=== PATIENT | male | born 1990 | race Caucasian/White ===

== ENCOUNTER 2016-10-06 10:42 | Emergency (ER) | payer OTHER ==
[~2016-10-06] VITALS: Ht 177.8 cm; Wt 102.3 kg
[~2016-10-06 10:42] MED LIST: AMOXICILLIN 50500 MG PO; MAGIC MOUTH PO; NO HOME MEDICATIONS; PREDNISONE20 MG PO; PRIL40 PO; ZOFRAN 4MG T4 MG/TAB PO
[2016-10-06 10:47] VITALS: TEMP 98.5
[2016-10-06 12:40] LABS: BASO # 0.1 (0.0-0.2); BASO % 0.7 % (0.0-2.0); EOS # 0.1 (0.0-0.7); EOS % 0.9 % (0-4.0); GRAN # 5.5 (1.4-6.5); GRAN % 71.7 % (42.2-75.2); HEMATOCRIT 43.8 % (42.0-52.0); HEMOGLOBIN 15.5 g/dl (13.5-18.0); LYMPH # 1.6 (1.2-3.4); LYMPH % 21.2 % (20.0-51.0); MEAN CELL VOLUME 84 fl (80.0-100.0); MEAN CORPUSCULAR HEMOGLOBIN 30 pg (27.0-31.0); MEAN CORPUSCULAR HGB CONC 35 g/dl (33.0-37.0); MEAN PLATELET VOLUME 11.2 fl (7.4-10.4); MONO # 0.4 (0.1-0.6); MONO % 4.6 % (1.7-9.3); PLATELET COUNT 224 K/mm3 (130-400); RED BLOOD COUNT 5.24 M/mm3 (4.20-5.60); REDCELL DISTRIBUTION WIDTH-CV 12.1 % (11.5-14.5); WHITE BLOOD COUNT 7.6 K/mm3 (4.8-10.8)
[2016-10-06] MEDS ORDERED: CEPHALEXIN500 M1 PO (13:07)
[2016-10-06 13:14] VITALS: PULSE 92
[2016-10-06 15:12] LABS: ERYTHROCYTE SEDIMENTATION RATE 6 mm/hr (0-15)
== END 2016-10-06 13:14 | disposition home or self-care (01) ==
LOC: COL.ER 10:42
PROVIDERS: Nurse Practitioner
DX: L03.116 Cellulitis of left lower limb (principal)

== ENCOUNTER 2017-02-19 12:23 | Inpatient (IN) | payer OTHER ==
[~2017-02-19] VITALS: Ht 180.3 cm; Wt 94.8 kg
[~2017-02-19 12:23] MED LIST changes: +CEPHALEXIN500 M1 PO
[2017-02-19 13:11] LABS: BASO # 0.1 (0.0-0.2); BASO % 0.6 % (0.0-2.0); EOS # 0.1 (0.0-0.7); EOS % 1.4 % (0-4.0); GRAN # 7.1 (1.4-6.5); GRAN % 81.7 % (42.2-75.2); HEMOGLOBIN 12.4 g/dl (13.5-18.0); LYMPH # 1.1 (1.2-3.4); LYMPH % 12.3 % (20.0-51.0); MEAN CELL VOLUME 81 fl (80.0-100.0); MEAN CORPUSCULAR HEMOGLOBIN 29 pg (27.0-31.0); MEAN CORPUSCULAR HGB CONC 36 g/dl (33.0-37.0); MEAN PLATELET VOLUME 11.4 fl (7.4-10.4); MONO # 0.3 (0.1-0.6); MONO % 3.7 % (1.7-9.3); PLATELET COUNT 173 K/mm3 (130-400); RED BLOOD COUNT 4.26 M/mm3 (4.20-5.60); REDCELL DISTRIBUTION WIDTH-CV 12.3 % (11.5-14.5); WHITE BLOOD COUNT 8.6 K/mm3 (4.8-10.8)
[2017-02-19 13:24] LABS: ADJUSTED CALCIUM 9.4 mg/dL (8.4-10.2); ALBUMIN 4.1 gm/dL (3.5-5.0); CALCIUM 9.5 mg/dL (8.4-10.2); HEMATOCRIT 34.3 % (42.0-52.0); POTASSIUM 3.8 mmol/L (3.4-5.0); TOTAL PROTEIN 7.2 gm/dL (6.4-8.2)
[2017-02-19 13:27] LABS: CREATININE, serum 5.71 mg/dL (0.66-1.25)
[2017-02-19 13:53] LABS: PH 5 (5-8); URINE APPEARANCE Hazy; URINE BACTERIA None Seen /hpf; URINE BILIRUBIN Negative (NEGATIVE); URINE BLOOD 3+ (NEGATIVE); URINE COLOR Yellow; URINE GLUCOSE Negative (NEGATIVE); URINE KETONE Negative (NEGATIVE); URINE UROBILINOGEN Negative (NEGATIVE)
[2017-02-19 16:31] VITALS: BP 201/112; PULSE 85; TEMP 98.4
[2017-02-19 19:25] VITALS: BP 155/89; PULSE 79; TEMP 98.3
[2017-02-19 19:31] LABS: URINE PROTEIN:CREAT RATIO 5.08 (0.00-0.14)
[2017-02-19 23:27] VITALS: BP 156/95; PULSE 81; TEMP 98.3
[2017-02-20 02:54] VITALS: BP 168/96; PULSE 73; TEMP 98.5
[2017-02-20 07:15] LABS: ALBUMIN 3.5 gm/dL (3.5-5.0); CALCIUM 8.9 mg/dL (8.4-10.2); POTASSIUM 3.6 mmol/L (3.4-5.0)
[2017-02-20 07:26] LABS: CREATININE, serum 5.29 mg/dL (0.66-1.25)
[2017-02-20 07:33] LABS: PHOSPHOROUS 4.8 mg/dL (2.5-4.5)
[2017-02-20 07:45] VITALS: BP 162/101; PULSE 75; TEMP 98
[2017-02-20 11:11] VITALS: BP 141/95; PULSE 74; TEMP 98.4
[2017-02-20 14:58] VITALS: BP 163/108; PULSE 65; TEMP 97.8
[2017-02-20 16:35] LABS: HEPATITIS B CORE AB,TOTAL Negative (()); HEPATITIS B SURFACE AB-QL Positive (())
[2017-02-20 20:41] VITALS: BP 153/95; PULSE 63; TEMP 98.2
[2017-02-21] VITALS (7 sets, daily range): BP systolic 143–169; BP diastolic 91–103; PULSE 58–69; TEMP 97.7–98.8
[2017-02-21 18:10] LABS: POTASSIUM 4.5 mmol/L (3.4-5.0)
[2017-02-21 18:18] LABS: CREATININE, serum 4.97 mg/dL (0.66-1.25)
[2017-02-22] VITALS (7 sets, daily range): BP systolic 132–188; BP diastolic 92–114; PULSE 58–71; TEMP 97.8–98.1
[2017-02-22 07:15] LABS: INR 0.9 (0.8-3.0); PROTHROMBIN TIME 9.8 SECONDS (9.7-12.8)
[2017-02-22 07:19] LABS: PARTIAL THROMBOPLASTIN TIME 29.2 SECONDS (26.0-37.0)
[2017-02-22 10:54] LABS: CALCIUM 8.9 mg/dL (8.4-10.2); POTASSIUM 3.8 mmol/L (3.4-5.0)
[2017-02-22 10:59] LABS: CREATININE, serum 4.95 mg/dL (0.66-1.25)
[2017-02-23] VITALS (17 sets, daily range): BP systolic 95–173; BP diastolic 47–115; PULSE 59–105; TEMP 97.8–98.7
[2017-02-23 07:41] LABS: CALCIUM 9.1 mg/dL (8.4-10.2); POTASSIUM 3.9 mmol/L (3.4-5.0)
[2017-02-23 07:47] LABS: CREATININE, serum 4.99 mg/dL (0.66-1.25)
[2017-02-23 22:08] LABS: HCV GENOTYPE Undetected (())
[2017-02-23 22:43] LABS: C-ANCA 9 U/mL (0-99); P-ANCA 15 U/mL (0-99)
[2017-02-24 03:43] VITALS: BP 95/43; PULSE 84; TEMP 97.9
[2017-02-24 07:46] VITALS: BP 118/60; PULSE 95; TEMP 98.7
[2017-02-24 07:49] LABS: POTASSIUM 4.9 mmol/L (3.4-5.0)
[2017-02-24 07:58] LABS: CREATININE, serum 5.89 mg/dL (0.66-1.25)
[2017-02-24] MEDS ORDERED: NICODERM C14 MG/PATC TD (10:21)
[2017-02-24] MEDS ORDERED: APRESOLINE 25MG25 MG PO (10:22)
[2017-02-24] MEDS ORDERED: COREG12.5 MG PO (10:22)
[2017-02-24] MEDS ORDERED: ADALAT CC90 MG PO (10:23)
[2017-02-24] MEDS ORDERED: ZESTRIL 20MG TA20 MG PO (10:24)
[2017-02-24] MEDS ORDERED: PREDNISONE20 MG PO (10:26)
[2017-02-24] MEDS ORDERED: XANAX 1MG1 MG PO (10:27)
[2017-02-24] MEDS ORDERED: PERCOCET 325 MG1 TA2 PO (10:28)
[2017-02-24 12:39] VITALS: BP 128/67; PULSE 93; TEMP 98.5
== END 2017-02-24 18:50 | disposition home or self-care (01) | DRG 684 ==
LOC: COL.ER 12:23 → MEDICAL 15:40
PROVIDERS: Emergency Medicine; Internal Medicine Nephrology
PROC: 0TB03ZX Excision of Right Kidney, Percutaneous Approach, Diagnostic (ICD-10-PCS; principal; 2017-02-23)
DX: N17.9 Acute kidney failure, unspecified (principal); I16.0 Hypertensive urgency; F41.0 Panic disorder [episodic paroxysmal anxiety]; Z87.891 Personal history of nicotine dependence; R31.29 Other microscopic hematuria
CPT/HCPCS: J0360; J1885; J2250; J2765; J2930; J3010; J7030; J7040

== ENCOUNTER 2017-05-01 19:44 | Inpatient (IN) | payer OTHER ==
[2017-05-01] VITALS (76 sets, daily range): BP systolic 146; BP diastolic 106; PULSE 138; TEMP 97; O2SAT 98–100
[~2017-05-01] VITALS: Ht 180.3 cm; Wt 89.5 kg
[~2017-05-01 19:44] MED LIST changes: +ADALAT CC90 MG PO; +APRESOLINE 25MG25 MG PO; +COREG12.5 MG PO; +NICODERM C14 MG/PATC TD; +PERCOCET 325 MG1 TA2 PO; +XANAX 1MG1 MG PO; +ZESTRIL 20MG TA20 MG PO
[2017-05-01 20:49] LABS: PH 5 (5-8); SQUAMOUS EPITHELIAL 0-2 /hpf; URINE APPEARANCE Clear; URINE BACTERIA Rare /hpf; URINE BILIRUBIN Negative (NEGATIVE); URINE BLOOD 3+ (NEGATIVE); URINE COLOR Yellow; URINE GLUCOSE Negative (NEGATIVE); URINE KETONE Negative (NEGATIVE); URINE RBC 20-50 /hpf; URINE UROBILINOGEN Negative (NEGATIVE); URINE WBC 0-2 /hpf
[2017-05-01 20:51] LABS: BASO # 0.1 (0.0-0.2); BASO % 0.9 % (0.0-2.0); EOS # 0.2 (0.0-0.7); EOS % 2.2 % (0-4.0); GRAN # 7.4 (1.4-6.5); GRAN % 80.9 % (42.2-75.2); HEMATOCRIT 34.8 % (42.0-52.0); HEMOGLOBIN 12.1 g/dl (13.5-18.0); LYMPH # 1.2 (1.2-3.4); LYMPH % 13.1 % (20.0-51.0); MEAN CELL VOLUME 83 fl (80.0-100.0); MEAN CORPUSCULAR HEMOGLOBIN 29 pg (27.0-31.0); MEAN CORPUSCULAR HGB CONC 35 g/dl (33.0-37.0); MEAN PLATELET VOLUME 11.6 fl (7.4-10.4); MONO # 0.2 (0.1-0.6); MONO % 2.6 % (1.7-9.3); PLATELET COUNT 204 K/mm3 (130-400); RED BLOOD COUNT 4.19 M/mm3 (4.20-5.60); REDCELL DISTRIBUTION WIDTH-CV 12.8 % (11.5-14.5); WHITE BLOOD COUNT 9.1 K/mm3 (4.8-10.8)
[2017-05-01 21:24] LABS: ADJUSTED CALCIUM 9.7 mg/dL (8.4-10.2); ALBUMIN 4.3 gm/dL (3.5-5.0); BILIRUBIN,TOTAL 0.7 mg/dL (0.0-1.0); CALCIUM 9.9 mg/dL (8.4-10.2); POTASSIUM 4.1 mmol/L (3.4-5.0); TOTAL PROTEIN 7.2 gm/dL (6.4-8.2)
[2017-05-01 21:25] LABS: CREATININE, serum 5.97 mg/dL (0.66-1.25)
[2017-05-01 23:13] LABS: AMPHETAMINE URINE NEGATIVE; BARBITURATES URINE NEGATIVE; BENZODIAZEPINES URINE NEGATIVE; BUPRENORPHINE URINE NEGATIVE; METHADONE URINE NEGATIVE; OPIATES URINE NEGATIVE; OXYCODONE URINE NEGATIVE; PHENCYCLIDINE URINE NEGATIVE; PROPOXYPHENE URINE NEGATIVE; THC CANNABINOIDS URINE NEGATIVE
[2017-05-01 23:21] LABS: PARTIAL THROMBOPLASTIN TIME 28.9 SECONDS (26.0-37.0)
[2017-05-02] VITALS (1067 sets, daily range): BP systolic 117–172; BP diastolic 76–106; PULSE 84–118; TEMP 97.2–99; O2SAT 93–100
[2017-05-02 00:18] LABS: PROTHROMBIN TIME 11.6 SECONDS (9.7-12.8)
[2017-05-03] VITALS (7 sets, daily range): BP systolic 155–183; BP diastolic 96–120; PULSE 82–102; TEMP 97.5–98.7
[2017-05-03 08:30] LABS: MEAN CELL VOLUME 84 fl (80.0-100.0); MEAN CORPUSCULAR HGB CONC 35 g/dl (33.0-37.0); PLATELET COUNT 165 K/mm3 (130-400); RED BLOOD COUNT 3.46 M/mm3 (4.20-5.60); REDCELL DISTRIBUTION WIDTH-CV 12.8 % (11.5-14.5)
[2017-05-03 08:33] LABS: HEMATOCRIT 29.1 % (42.0-52.0); HEMOGLOBIN 10.2 g/dl (13.5-18.0); MEAN CORPUSCULAR HEMOGLOBIN 29 pg (27.0-31.0)
[2017-05-03 11:34] LABS: CALCIUM 9.5 mg/dL (8.4-10.2); POTASSIUM 4.2 mmol/L (3.4-5.0)
[2017-05-03 11:43] LABS: CREATININE, serum 5.92 mg/dL (0.66-1.25)
[2017-05-04 00:20] VITALS: BP 154/98; PULSE 100; TEMP 98.7
[2017-05-04 04:10] VITALS: BP 160/100; BP 160/90; PULSE 89; TEMP 98.2
[2017-05-04 07:49] VITALS: BP 167/103; PULSE 82; TEMP 98.7
[2017-05-04 07:56] LABS: CALCIUM 9.8 mg/dL (8.4-10.2); MAGNESIUM 1.9 mg/dL (1.6-2.3); POTASSIUM 4.2 mmol/L (3.4-5.0)
[2017-05-04 08:00] LABS: CREATININE, serum 6.48 mg/dL (0.66-1.25)
[2017-05-04 08:16] LABS: BASO # 0.1 (0.0-0.2); BASO % 1.1 % (0.0-2.0); EOS # 0.5 (0.0-0.7); EOS % 10.3 % (0-4.0); GRAN # 2.9 (1.4-6.5); GRAN % 61.1 % (42.2-75.2); LYMPH % 21.2 % (20.0-51.0); MEAN CELL VOLUME 82 fl (80.0-100.0); MEAN CORPUSCULAR HGB CONC 36 g/dl (33.0-37.0); MEAN PLATELET VOLUME 10.5 fl (7.4-10.4); MONO # 0.3 (0.1-0.6); MONO % 6.1 % (1.7-9.3); PLATELET COUNT 175 K/mm3 (130-400); RED BLOOD COUNT 3.68 M/mm3 (4.20-5.60); REDCELL DISTRIBUTION WIDTH-CV 12.6 % (11.5-14.5); WHITE BLOOD COUNT 4.8 K/mm3 (4.8-10.8)
[2017-05-04 08:18] LABS: HEMATOCRIT 30.3 % (42.0-52.0); HEMOGLOBIN 10.8 g/dl (13.5-18.0); MEAN CORPUSCULAR HEMOGLOBIN 29 pg (27.0-31.0)
[2017-05-04] MEDS ORDERED: ELIQUIS 5MG PO (10:56)
[2017-05-04] MEDS ORDERED: LASIX 40MG TABL40 MG PO (10:57)
[2017-05-04] MEDS ORDERED: CARDIZEM CD 12120 MG PO (10:57)
[2017-05-04] MEDS ORDERED: MINOXIDIL 2.5 PO (10:57)
== END 2017-05-04 13:23 | disposition home or self-care (01) | DRG 309 ==
LOC: COL.ER 19:44 → ICU 22:06 → MEDICAL 22:06
PROVIDERS: Emergency Medicine; Internal Medicine; Nurse Practitioner; Physician Assistant
DX: I48.91 Unspecified atrial fibrillation (principal); I12.0 Hypertensive chronic kidney disease with stage 5 chronic kidney disease or end stage renal disease; N18.5 Chronic kidney disease, stage 5; F17.210 Nicotine dependence, cigarettes, uncomplicated; R51 Headache; R11.2 Nausea with vomiting, unspecified
CPT/HCPCS: 99223-AI; 99232-AI; 99233-AI; 99239; J0360; J1644; J7030; J7050

== ENCOUNTER 2017-05-17 18:40 | Inpatient (IN) | payer OTHER ==
[~2017-05-17] VITALS: Ht 177.8 cm; Wt 85.0 kg
[~2017-05-17 18:40] MED LIST changes: +CARDIZEM CD 12120 MG PO; +ELIQUIS 5MG PO; +LASIX 40MG TABL40 MG PO; +MINOXIDIL 2.5 PO
[2017-05-17 20:05] LABS: BASO % 0.3 % (0.0-2.0); EOS # 0.1 (0.0-0.7); EOS % 1.3 % (0-4.0); GRAN # 7.1 (1.4-6.5); LYMPH # 0.9 (1.2-3.4); LYMPH % 10.4 % (20.0-51.0); MEAN CELL VOLUME 80 fl (80.0-100.0); MEAN CORPUSCULAR HGB CONC 36 g/dl (33.0-37.0); MEAN PLATELET VOLUME 10.5 fl (7.4-10.4); MONO # 0.5 (0.1-0.6); MONO % 5.7 % (1.7-9.3); PLATELET COUNT 105 K/mm3 (130-400); RED BLOOD COUNT 3.32 M/mm3 (4.20-5.60); REDCELL DISTRIBUTION WIDTH-CV 12.5 % (11.5-14.5); WHITE BLOOD COUNT 8.7 K/mm3 (4.8-10.8)
[2017-05-17 20:13] LABS: HEMATOCRIT 26.7 % (42.0-52.0); HEMOGLOBIN 9.6 g/dl (13.5-18.0); MEAN CORPUSCULAR HEMOGLOBIN 29 pg (27.0-31.0)
[2017-05-17 20:15] LABS: ADJUSTED CALCIUM 9.3 mg/dL (8.4-10.2); ALBUMIN 4.1 gm/dL (3.5-5.0); BILIRUBIN,TOTAL 1.5 mg/dL (0.0-1.0); CALCIUM 9.4 mg/dL (8.4-10.2); POTASSIUM 3.8 mmol/L (3.4-5.0); TOTAL PROTEIN 6.9 gm/dL (6.4-8.2)
[2017-05-17 20:20] LABS: MAGNESIUM 1.8 mg/dL (1.6-2.3); PHOSPHOROUS 6.4 mg/dL (2.5-4.5)
[2017-05-17 20:31] LABS: CREATININE, serum 13.38 mg/dL (0.66-1.25); TROPONIN-I 0.112 ng/mL (0.000-0.034)
[2017-05-17 21:43] VITALS: BP 202/131; PULSE 96; TEMP 99.7
[2017-05-18] VITALS (7 sets, daily range): BP systolic 122–187; BP diastolic 75–115; PULSE 83–106; TEMP 97.2–98.7
[2017-05-18 02:13] LABS: PH 5 (5-8); SQUAMOUS EPITHELIAL 0-2 /hpf; URINE APPEARANCE Hazy; URINE BACTERIA Rare /hpf; URINE BILIRUBIN Negative (NEGATIVE); URINE BLOOD 3+ (NEGATIVE); URINE COLOR Yellow; URINE GLUCOSE Negative (NEGATIVE); URINE KETONE Trace (NEGATIVE); URINE RBC 20-50 /hpf; URINE UROBILINOGEN Negative (NEGATIVE); URINE WBC 0-2 /hpf
[2017-05-18 06:26] LABS: INR 1.3 (0.8-3.0); PROTHROMBIN TIME 14.5 SECONDS (9.7-12.8)
[2017-05-18 06:35] LABS: CALCIUM 9.3 mg/dL (8.4-10.2); MAGNESIUM 1.9 mg/dL (1.6-2.3); PHOSPHOROUS 8.5 mg/dL (2.5-4.5); POTASSIUM 4.3 mmol/L (3.4-5.0)
[2017-05-18 06:37] LABS: CREATININE, serum 13.82 mg/dL (0.66-1.25)
[2017-05-18 07:05] LABS: TROPONIN-I 0.134 ng/mL (0.000-0.034)
[2017-05-19 00:44] LABS: HEPATITIS B CORE AB,TOTAL Negative (()); HEPATITIS B SURFACE AB-QL Positive (())
[2017-05-19 03:21] VITALS: BP 166/93; PULSE 87; TEMP 88
[2017-05-19 07:19] VITALS: BP 165/98; PULSE 85; TEMP 98.7
[2017-05-19 09:01] LABS: BASO % 0.3 % (0.0-2.0); EOS # 0.1 (0.0-0.7); EOS % 2.2 % (0-4.0); GRAN # 4.1 (1.4-6.5); GRAN % 70.9 % (42.2-75.2); MEAN CELL VOLUME 82 fl (80.0-100.0); MEAN CORPUSCULAR HGB CONC 35 g/dl (33.0-37.0); MEAN PLATELET VOLUME 11.2 fl (7.4-10.4); MONO # 0.4 (0.1-0.6); MONO % 7.6 % (1.7-9.3); PLATELET COUNT 103 K/mm3 (130-400); RED BLOOD COUNT 3.07 M/mm3 (4.20-5.60); REDCELL DISTRIBUTION WIDTH-CV 12.8 % (11.5-14.5); WHITE BLOOD COUNT 5.8 K/mm3 (4.8-10.8)
[2017-05-19 09:02] LABS: HEMATOCRIT 25.2 % (42.0-52.0); HEMOGLOBIN 8.9 g/dl (13.5-18.0); MEAN CORPUSCULAR HEMOGLOBIN 29 pg (27.0-31.0)
[2017-05-19 09:05] LABS: ADJUSTED CALCIUM 9.6 mg/dL (8.4-10.2); ALBUMIN 3.7 gm/dL (3.5-5.0); BILIRUBIN,TOTAL 1.3 mg/dL (0.0-1.0); CALCIUM 9.4 mg/dL (8.4-10.2); POTASSIUM 3.7 mmol/L (3.4-5.0); TOTAL PROTEIN 6.4 gm/dL (6.4-8.2)
[2017-05-19 09:14] LABS: CREATININE, serum 11.45 mg/dL (0.66-1.25)
[2017-05-19 12:01] VITALS: BP 153/92; PULSE 83; TEMP 97.5
[2017-05-19 15:33] VITALS: BP 98/37; PULSE 83; TEMP 98.2
[2017-05-19 23:54] VITALS: BP 114/63; PULSE 86; TEMP 98.7
[2017-05-20 04:22] VITALS: BP 118/61; PULSE 86; TEMP 98
[2017-05-20 08:04] VITALS: BP 133/78; PULSE 90; TEMP 98.3
[2017-05-20 12:39] VITALS: BP 124/62; PULSE 85; TEMP 98.7
[2017-05-20 15:01] VITALS: BP 112/48; PULSE 85; TEMP 99.3
[2017-05-20 19:46] VITALS: BP 120/71; PULSE 88; TEMP 98.6
[2017-05-20 22:46] VITALS: BP 112/48; PULSE 88; TEMP 100.7
[2017-05-21 03:09] VITALS: BP 101/46; PULSE 85; TEMP 97.8
[2017-05-21 06:41] VITALS: BP 125/67; PULSE 74; TEMP 98.7
[2017-05-21 10:22] LABS: BASO % 0.4 % (0.0-2.0); EOS # 0.3 (0.0-0.7); EOS % 6.1 % (0-4.0); GRAN # 3.4 (1.4-6.5); GRAN % 62.5 % (42.2-75.2); LYMPH # 1.1 (1.2-3.4); MEAN CELL VOLUME 86 fl (80.0-100.0); MEAN CORPUSCULAR HGB CONC 35 g/dl (33.0-37.0); MEAN PLATELET VOLUME 11.1 fl (7.4-10.4); MONO # 0.5 (0.1-0.6); MONO % 9.3 % (1.7-9.3); PLATELET COUNT 156 K/mm3 (130-400); RED BLOOD COUNT 2.91 M/mm3 (4.20-5.60); REDCELL DISTRIBUTION WIDTH-CV 13.2 % (11.5-14.5); WHITE BLOOD COUNT 5.4 K/mm3 (4.8-10.8)
[2017-05-21 10:25] LABS: HEMOGLOBIN 8.7 g/dl (13.5-18.0); MEAN CORPUSCULAR HEMOGLOBIN 30 pg (27.0-31.0)
[2017-05-21 10:28] LABS: ADJUSTED CALCIUM 9.8 mg/dL (8.4-10.2); ALBUMIN 3.3 gm/dL (3.5-5.0); BILIRUBIN,TOTAL 0.7 mg/dL (0.0-1.0); CALCIUM 9.2 mg/dL (8.4-10.2); POTASSIUM 3.6 mmol/L (3.4-5.0)
[2017-05-21 10:48] LABS: CREATININE, serum 11.42 mg/dL (0.66-1.25)
[2017-05-21 15:53] VITALS: BP 141/67; PULSE 78; TEMP 97.9
[2017-05-21 20:28] VITALS: BP 119/57; PULSE 99; TEMP 99.5
[2017-05-21 22:31] VITALS: BP 125/63; PULSE 95; TEMP 100.1
[2017-05-22 04:32] VITALS: BP 124/59; PULSE 80; TEMP 98.5
[2017-05-22 05:59] LABS: MEAN CELL VOLUME 86 fl (80.0-100.0); MEAN CORPUSCULAR HGB CONC 34 g/dl (33.0-37.0); MEAN PLATELET VOLUME 10.6 fl (7.4-10.4); PLATELET COUNT 188 K/mm3 (130-400); RED BLOOD COUNT 2.96 M/mm3 (4.20-5.60); REDCELL DISTRIBUTION WIDTH-CV 12.9 % (11.5-14.5)
[2017-05-22 06:02] LABS: HEMATOCRIT 25.4 % (42.0-52.0); HEMOGLOBIN 8.6 g/dl (13.5-18.0); MEAN CORPUSCULAR HEMOGLOBIN 29 pg (27.0-31.0)
[2017-05-22 06:17] LABS: CALCIUM 9.4 mg/dL (8.4-10.2); PHOSPHOROUS 4.4 mg/dL (2.5-4.5); POTASSIUM 3.9 mmol/L (3.4-5.0)
[2017-05-22 06:20] LABS: CREATININE, serum 8.4 mg/dL (0.66-1.25)
[2017-05-22 07:22] VITALS: BP 136/75; PULSE 86; TEMP 98
[2017-05-22 11:20] VITALS: BP 128/62; PULSE 91; TEMP 97.5
[2017-05-22 16:14] VITALS: BP 122/65; PULSE 77; TEMP 98.4
[2017-05-22 21:08] VITALS: BP 125/64; PULSE 95; TEMP 98.7
[2017-05-22 22:35] VITALS: BP 135/72; PULSE 80; TEMP 98.6
[2017-05-23 04:08] VITALS: BP 148/80; PULSE 81; TEMP 98.4
[2017-05-23 07:30] LABS: MEAN CELL VOLUME 86 fl (80.0-100.0); MEAN CORPUSCULAR HGB CONC 34 g/dl (33.0-37.0); MEAN PLATELET VOLUME 10.2 fl (7.4-10.4); PLATELET COUNT 209 K/mm3 (130-400); RED BLOOD COUNT 2.98 M/mm3 (4.20-5.60); REDCELL DISTRIBUTION WIDTH-CV 13.2 % (11.5-14.5); WHITE BLOOD COUNT 5.4 K/mm3 (4.8-10.8)
[2017-05-23 07:35] LABS: HEMATOCRIT 25.5 % (42.0-52.0); HEMOGLOBIN 8.6 g/dl (13.5-18.0); MEAN CORPUSCULAR HEMOGLOBIN 29 pg (27.0-31.0)
[2017-05-23 07:45] LABS: CALCIUM 9.7 mg/dL (8.4-10.2)
[2017-05-23 07:48] LABS: CREATININE, serum 10.08 mg/dL (0.66-1.25)
[2017-05-23 08:45] VITALS: BP 145/82; PULSE 85; TEMP 97.9
[2017-05-23 11:30] VITALS: BP 109/86; PULSE 94; TEMP 97.9
[2017-05-23 15:41] VITALS: BP 129/68; PULSE 98; TEMP 98.7
[2017-05-23 19:24] VITALS: BP 134/80; PULSE 84; TEMP 98.1
[2017-05-23 22:15] VITALS: BP 138/75; PULSE 86; TEMP 98.5
[2017-05-24 03:25] VITALS: BP 138/88; PULSE 75; TEMP 97.7
[2017-05-24 07:10] LABS: MEAN CELL VOLUME 84 fl (80.0-100.0); MEAN CORPUSCULAR HGB CONC 35 g/dl (33.0-37.0); MEAN PLATELET VOLUME 10.2 fl (7.4-10.4); PLATELET COUNT 225 K/mm3 (130-400); RED BLOOD COUNT 3.01 M/mm3 (4.20-5.60); REDCELL DISTRIBUTION WIDTH-CV 13.4 % (11.5-14.5); WHITE BLOOD COUNT 5.3 K/mm3 (4.8-10.8)
[2017-05-24 07:11] LABS: HEMATOCRIT 25.4 % (42.0-52.0); HEMOGLOBIN 8.8 g/dl (13.5-18.0); MEAN CORPUSCULAR HEMOGLOBIN 29 pg (27.0-31.0)
[2017-05-24 07:17] VITALS: BP 159/75; PULSE 83; TEMP 97.6
[2017-05-24 07:26] LABS: CALCIUM 9.4 mg/dL (8.4-10.2); POTASSIUM 4.2 mmol/L (3.4-5.0)
[2017-05-24 07:38] LABS: CREATININE, serum 10.93 mg/dL (0.66-1.25)
[2017-05-24 15:59] VITALS: BP 143/72; PULSE 97; TEMP 98.2
[2017-05-24 19:38] VITALS: BP 111/51; PULSE 90; TEMP 98.5
[2017-05-24 23:25] VITALS: BP 129/73; PULSE 90; TEMP 98.7
[2017-05-25 04:21] VITALS: BP 128/82; PULSE 83; TEMP 98.1
[2017-05-25 07:22] VITALS: BP 136/82; PULSE 86; TEMP 97.2
[2017-05-25 08:20] LABS: MEAN CELL VOLUME 85 fl (80.0-100.0); MEAN CORPUSCULAR HGB CONC 34 g/dl (33.0-37.0); MEAN PLATELET VOLUME 10.3 fl (7.4-10.4); PLATELET COUNT 253 K/mm3 (130-400); RED BLOOD COUNT 3.07 M/mm3 (4.20-5.60)
[2017-05-25 08:22] LABS: HEMOGLOBIN 8.9 g/dl (13.5-18.0); MEAN CORPUSCULAR HEMOGLOBIN 29 pg (27.0-31.0)
[2017-05-25 08:28] LABS: CALCIUM 9.5 mg/dL (8.4-10.2); POTASSIUM 4.3 mmol/L (3.4-5.0)
[2017-05-25 08:51] LABS: CREATININE, serum 8.01 mg/dL (0.66-1.25)
[2017-05-25 12:12] VITALS: BP 147/77; PULSE 83; TEMP 98.5
[2017-05-25] MEDS ORDERED: ZESTRIL 20MG TA20 MG PO (12:12)
[2017-05-25] MEDS ORDERED: LASIX 40MG TABL40 MG PO (12:14)
[2017-05-25] MEDS ORDERED: NEPHROCAP PO (12:14)
== END 2017-05-25 13:19 | disposition home or self-care (01) | DRG 682 ==
LOC: COL.ER 18:40 → ICU 20:56 → MEDICAL 05-18 17:10
PROVIDERS: Emergency Medicine; Internal Medicine; Internal Medicine Cardiovascular Disease; Nurse Practitioner
PROC: 02H633Z Insertion of Infusion Device into Right Atrium, Percutaneous Approach (ICD-10-PCS; principal; 2017-05-18)
PROC: B2141ZZ Fluoroscopy of Right Heart using Low Osmolar Contrast (ICD-10-PCS; 2017-05-18)
PROC: 5A1D70Z Performance of Urinary Filtration, Intermittent, Less than 6 Hours Per Day (ICD-10-PCS; 2017-05-18)
DX: I12.0 Hypertensive chronic kidney disease with stage 5 chronic kidney disease or end stage renal disease (principal); N18.6 End stage renal disease; E44.0 Moderate protein-calorie malnutrition; N17.9 Acute kidney failure, unspecified; I16.0 Hypertensive urgency; I48.91 Unspecified atrial fibrillation; F17.210 Nicotine dependence, cigarettes, uncomplicated; Z99.2 Dependence on renal dialysis
CPT/HCPCS: 99223-AI; J0360; J0881; J0882; J1644; J1940; J2250; J2405; J3010